=== PATIENT | female | born 1985 | race Caucasian/White ===

== ENCOUNTER 2017-04-02 00:55 | Emergency (ER) | payer BC, SELFPAY | END 2017-04-02 02:43 | disposition home or self-care (01) | PROVIDERS: Emergency Provider Emergency Medicine; Visit Provider Emergency Medicine | DX: S01.81XA Laceration without foreign body of other part of head, initial encounter (principal); R11.10 Vomiting, unspecified; R19.7 Diarrhea, unspecified; W06.XXXA Fall from bed, initial encounter; Y92.013 Bedroom of single-family (private) house as the place of occurrence of the external cause | CPT/HCPCS: 12052; 80053; 84703; 85025; 87275; 87276; 96365; 96375; 99284; J2405 ==

== ENCOUNTER → 2020-04-18 08:11 | Outpatient (CLI) | payer BC, SELFPAY | PROVIDERS: PCP Family Medicine; Visit Provider Emergency Medicine | DX: U07.1 COVID-19; Z20.822 Contact with and (suspected) exposure to COVID-19 | CPT/HCPCS: U0003 ==

== ENCOUNTER 2024-11-23 16:16 | Outpatient (CLI) | payer BC, SELFPAY ==
--- OUTSIDE RECORDS SUMMARY | 2024-11-23 16:18 | XMS_ITS | Clinical Summary ---
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 Phone Sophie Garcia MD Primary Care Provider Unavail able Allergies No known active allergies Medications No known medications Active Problems Problem Noted Date Diagnosed Date IUD check up 08/26/2020 Women's annual routine gynecological examination 08/26/2020 Family History Medical History Relation Name Comments Hyperlipidemia Father Hypertension Father Breast cancer Maternal Grandmother Hyperlipidemia Mother Lung cancer Paternal Grandfather Relation Name Status Comments Father Maternal Grandmother Mother Paternal Grandfather Social History Tobacco Use Types Packs/Day Years Used Date Smoking Tobacco: Never Smokeless Tobacco: Never Alcohol Use Standard Drinks/Week Comments Yes 0 (1 standard drink = 0.6 oz pur e alcohol) occasional Abuse Screen Answer Date Recorded Unsafe at Home or Work/School Not on file Feels Threatened by Someone? Not on file 12/2022 Does Anyone Keep You from Co ntacting Others or Doint Things Outside the Home? Not on file 01/17/2023 Physical Sign of Abuse Present Not on file 1 Housing Stability Answer Date Recorded Current Living Arrangements Not on file 12/2022 Potentially Unsafe Housing Conditions Not on jian e 01/17/2023 Family and Community Support Answer Guillermo e Recorded Help with Day-to-Day Activities Not on file 01/17/2023 Lonely or Isolated Not on file 01/17/2023 Employment Answer Date Recorded Do you want help finding or keeping work or a nina b? Not on file 01/17/2023 Disabilities Answer Date Recorded Concentrating, Remembering, or Making Decisions Difficulty Not on file 01/17/2023 Doing Errands Independently Difficulty Not on fi le 01/17/2023 Education Answer Date Recorded Help with school or training? Not on file Preferred Language Not on file 01/17/2023 Comments No Sex and Gender Information Value Date Recorded Sex Assigned at Not on file Legal Sex Female 11:53 AM EDT Gender Identity Not on file Sexual Orientation Not on file Last Filed Vital Signs Vital Sign Reading Time Taken Comments Blood Pressure - - Pulse 82 05/09/2017 10:09 AM EST Temperature 36.7 C (98.1 F) 05/09/2017 10:09 AM EST Respiratory Rate 15 05/09/2017 10:09 AM EST Oxygen Saturation 98% 05/09/2017 10:09 AM EST Inhaled Oxygen Concentration - - Weight 76.2 kg (168 lb) 05/09/2017 10:09 AM EST Height 177.8 cm (5' 10 ) 05/09/2017 10:09 AM EST Body Mass Index 24.11 05/09/2017 10:09 AM EST Plan of Treatment Health Maintenance Due Date Last Done Comments Annual Gynecologic Pelvic an d Breast Exam 1983 TDAP/TD VACCINES (1 - Tdap) 06/20/2002 ANNUAL PHYSICAL 05/09/2017 HEPATITIS C SCREENING 05/09/2017 MAMMOGRAM 2023 COVID-19 Vaccine (3 - 2023-2 5 season) 2023 05/30/2020, 05/01/2020 INFLUENZA VACCINE 01/09/2025 Pneumococcal Vaccine 0-49 Aged Out No longer eligible based on patient's age to complete this topic 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
--- NOTE | 2024-11-23 16:30 | MM_ITS ---
PROCEDURE INFORMATION: Exam: Bilateral Screening 3D Mammography Exam date and time: 11/23/2024 4:36 PM Age: 39 years old Clinical indication: Baseline. A maternal aunt and her maternal grandmother had breast cancer. TECHNIQUE: Imaging protocol: Bilateral Screening tomosynthesis and 2D mammography including computer-aided detection (CAD) when performed. COMPARISON: No relevant prior studies available. FINDINGS: MAMMOGRAPHY: Breast composition: There are scattered areas of fibroglandular density. Mass: None. Architectural distortion: None. Calcifications: No suspicious calcifications. Asymmetric density: None. Skin thickening: None. Axillary adenopathy: None. IMPRESSION: No mammographic evidence of malignancy. Annual screening is recommended unless otherwise clinically indicated. ASSESSMENT: BI-RADS Category 1: Negative.
== END 2024-11-23 23:59 | disposition home or self-care (01) ==
LOC: RAD 16:16
PROVIDERS: PCP Internal Medicine Adolescent Medicine; Visit Provider Obstetrics & Gynecology
DX: Z12.31 Encounter for screening mammogram for malignant neoplasm of breast (principal); R92.323 Mammographic fibroglandular density, bilateral breasts; Z80.3 Family history of malignant neoplasm of breast
CPT/HCPCS: 77063; 77067